=== PATIENT | female | born 1980 | race Caucasian/White ===

== ENCOUNTER 2020-09-20 05:08 | Inpatient (IN) | payer OTHER ==
[~2020-09-20] VITALS: Ht 157.5 cm; Wt 83.9 kg
[~2020-09-20 05:08] MED LIST: COLACE 100MG C100 MG PO; IBUPROFEN600 MG PO; NORCO 5-325 TA1 EACH PO; PRENATAL VITAM1 EAC8 PO
[2020-09-20 05:52] LABS: HEMOGLOBIN 12.2 gm/dl (12.3-15.3); RED BLOOD COUNT 3.76 M/UL (4.00-5.10); WHITE BLOOD COUNT 9.5 K/UL (4.5-11.0)
[2020-09-20] MEDS ORDERED: HYDROCODON-ACE1 EAC6 PO (08:30)
[2020-09-20] MEDS ORDERED: COLACE 100MG C100 MG PO (08:30)
[2020-09-20] MEDS ORDERED: IBUPROFEN600 MG PO (08:30)
[2020-09-21 06:20] LABS: HEMOGLOBIN 13.1 gm/dl (12.3-15.3)
== END 2020-09-21 10:27 | disposition home or self-care (01) | DRG 788 ==
LOC: CDU 05:08 → OB 05:17
PROVIDERS: ADMIT Obstetrics & Gynecology
PROC: 4A1HXCZ Monitoring of Products of Conception, Cardiac Rate, External Approach (ICD-10-PCS; 2020-09-20)
PROC: 10D00Z1 Extraction of Products of Conception, Low, Open Approach (ICD-10-PCS; principal; 2020-09-20 07:30)
DX: O99.892 Other specified diseases and conditions complicating childbirth (principal); N73.6 Female pelvic peritoneal adhesions (postinfective); Z3A.38 38 weeks gestation of pregnancy; Z37.0 Single live birth; Z20.822 Contact with and (suspected) exposure to COVID-19; Z81.8 Family history of other mental and behavioral disorders
CPT/HCPCS: 36415; 81001; 82800; 85014; 85018; 85025; 85461; 86850; 86900; 86901; C9113; J0690; J1200; J1650; J1885; J2274; J2405; J2590; J2790; J3010; J7030; J7120; U0002